=== PATIENT | female | born 1965 | race Caucasian/White ===

== ENCOUNTER 2021-01-30 18:57 | Inpatient (IN) ==
[2021-01-30] MEDS ORDERED: Ipratropium/Albuterol Neb 3 ML IH ONE (19:01)
[2021-01-30 19:27] LABS: VBG HCO3 33 mEq/L (21-27); VBG PCO2 79 mmHg (41-51); VBG PH 7.23 pH Units (7.32-7.42); VBG PO2 37 mmHg (25-50)
[2021-01-30 19:29] LABS: Basophils # 0.1 K/mcL (0.0-0.2); Basophils % 0.5 %; Eosinophils # 0.3 K/mcL (0.0-0.6); Eosinophils % 2.4 %; Hematocrit 43.5 % (35.3-44.9); Hemoglobin 14.6 g/dL (11.5-15.4); Immature Granulocytes % 0.3 % (0-4); Lymphocytes # 2.2 K/mcL (0.6-4.6); Lymphocytes % 21.1 %; Mean Corpuscular HGB Conc 33.6 g/dL (31.6-35.5); Mean Corpuscular Hemoglobin 34.2 pg (28.0-33.3); Mean Corpuscular Volume 101.9 fL (83.0-100.0); Mean Platelet Volume 9.8 fL (9.4-12.4); Monocytes # 0.7 K/mcL (0.0-1.3); Monocytes % 6.1 %; Neutrophils # 7.4 K/mcL (1.6-8.9); Platelet Count 203 K/mcL (140-400); Red Blood Count 4.27 M/mcL (3.82-4.97); Red Cell Distribution Width 12.8 % (11.5-14.5); Segmented Neutrophils % 69.6 %; White Blood Count 10.6 K/mcL (4.3-11.1)
[2021-01-30 19:51] LABS: BUN/Creatinine Ratio 14 (6-26); Blood Urea Nitrogen 12 mg/dL (6-20); Calcium 8.6 mg/dL (8.6-10.3); Carbon Dioxide 30 mEq/L (23-29); Chloride 95 mEq/L (98-107); Glucose 210 mg/dL (70-105); Magnesium 1.7 mg/dL (1.6-2.6); Osmolality,Calculated 288 (280-300); Potassium 4.5 mEq/L (3.5-5.1); Sodium 136 mEq/L (136-145); Troponin I 0.03 ng/mL (< 0.04); eGFR For African Americans > 60 (> 60); eGFR For Non-African Americans > 60 (> 60)
[2021-01-30 20:12] LABS: Adenovirus Not Detected (Not Detect); Bordetella Pertussis Not Detected (Not Detect); Chlamydophila pneumoniae Not Detected (Not Detect); Coronavirus 229E Not Detected (Not Detect); Coronavirus HKU1 Not Detected (Not Detect); Coronavirus NL63 Not Detected (Not Detect); Coronavirus OC43 Not Detected (Not Detect); Human Metapneumovirus Not Detected (Not Detect); Human Rhinovirus/Enterovirus Not Detected (Not Detect); Influenza A Subtype 2009 H1 Not Detected (Not Detect); Influenza B Not Detected (Not Detect); Mycoplasma pneumoniae Not Detected (Not Detect); Parainfluenza Virus 1 Not Detected (Not Detect); Parainfluenza Virus 2 Not Detected (Not Detect); Parainfluenza Virus 3 Not Detected (Not Detect); Parainfluenza Virus 4 Not Detected (Not Detect); Respiratory Syncytial Virus Not Detected (Not Detect); SARS-CoV-2 Not Detected (Not Detect)
[2021-01-30 20:26] LABS: ABG Base Excess 4 mEq/L (-2 to 3); ABG HCO3 31 mEq/L (21-27); ABG Oxygen Saturation 100 % (95-98); ABG PCO2 56 mmHg (35-45); ABG PH 7.35 pH Units (7.32-7.45); ABG PO2 257 mmHg (85-104); ABG TCO2 33 mEq/L (20-26); Blood Gas Modality ST
[2021-01-30] MEDS ORDERED: Isovue-370 500 ML BOTTLE IVP ONE (21:27)
[2021-01-30] MEDS ORDERED: cefTRIAXone 1,000 MG in 0.9 % Sodium Chloride Mini Bag 100 ML IVPB ONE (21:28)
[2021-01-30] MEDS ORDERED: Azithromycin 500 MG in 0.9 % Sodium Chloride 250 ML IVPB ONE (21:28)
[2021-01-30] MEDS ORDERED: Naloxone 0.4 MG/ML INJ IVP PRN (23:10)
[2021-01-30] MEDS ORDERED: Ondansetron ODT 4 MG TAB.RAPDIS SL PRN (23:10)
[2021-01-30] MEDS ORDERED: Melatonin 3 MG TABLET PO PRN (23:10)
[2021-01-30] MEDS ORDERED: Albuterol 2.5 MG/3 ML NEBULIZER IH PRN (23:11)
[2021-01-30] MEDS ORDERED: Ipratropium/Albuterol Neb 3 ML IH PRN (23:12)
[2021-01-30] MEDS ORDERED: Azithromycin 500 MG in 0.9 % Sodium Chloride 250 ML IVPB SCH (23:45)
[2021-01-30] MEDS ORDERED: Acetaminophen 325 MG TABLET PO PRN (23:47)
[2021-01-31] MEDS ORDERED: *HR* LORazepam 2 MG/ML VIAL IVP ONE (00:13)
[2021-01-31] MEDS: MethylPREDNISolone 40 MG/ML VIAL IVP SCH ×3 (00:31→12:29)
[2021-01-31 02:06] LABS: Hematocrit 42.8 % (35.3-44.9); Hemoglobin 14.5 g/dL (11.5-15.4); Mean Corpuscular HGB Conc 33.9 g/dL (31.6-35.5); Mean Corpuscular Hemoglobin 34.1 pg (28.0-33.3); Mean Corpuscular Volume 100.7 fL (83.0-100.0); Mean Platelet Volume 9.7 fL (9.4-12.4); Platelet Count 191 K/mcL (140-400); Red Blood Count 4.25 M/mcL (3.82-4.97); White Blood Count 8.6 K/mcL (4.3-11.1)
[2021-01-31 02:10] LABS: Estimated Average Glucose 111 mg/dl; Hemoglobin A1C 5.5 %
[2021-01-31 02:30] LABS: BUN/Creatinine Ratio 15 (6-26); Blood Urea Nitrogen 12 mg/dL (6-20); Calcium 8.5 mg/dL (8.6-10.3); Carbon Dioxide 27 mEq/L (23-29); Chloride 96 mEq/L (98-107); Glucose 117 mg/dL (70-105); Magnesium 1.7 mg/dL (1.6-2.6); Osmolality,Calculated 277 (280-300); Potassium 5.3 mEq/L (3.5-5.1); Sodium 133 mEq/L (136-145); eGFR For African Americans > 60 (> 60); eGFR For Non-African Americans > 60 (> 60)
[2021-01-31] MEDS: *HR* Heparin 5,000 UNIT/ML VIAL SQ SCH ×2 (04:36→18:04)
[2021-01-31] MEDS ORDERED: amLODIPine 5 MG TABLET PO SCH (09:00)
[2021-01-31] MEDS ORDERED: amLODIPine 5 MG TABLET PO ONE ×2 (12:38)
[2021-01-31] MEDS ORDERED: diazePAM 2 MG TABLET PO PRN ×2 (15:56→16:58)
[2021-01-31] MEDS: lisinopriL 20 MG TABLET PO SCH (16:12)
[2021-01-31] MEDS ORDERED: Azithromycin 500 MG in 0.9 % Sodium Chloride 250 ML IVPB SCH (18:00)
[2021-01-31] MEDS: Budesonide/Formoterol 160/4.5 1 PUFF INH IH SCH (19:53)
[2021-02-01] MEDS ORDERED: MethylPREDNISolone 40 MG/ML VIAL IVP SCH
[2021-02-01] MEDS ORDERED: *HR* Labetalol 20 MG/4 ML SYRINGE IVP ONE (05:07)
[2021-02-01] MEDS: *HR* Heparin 5,000 UNIT/ML VIAL SQ SCH (05:33)
[2021-02-01] MEDS: MethylPREDNISolone 40 MG/ML VIAL IVP SCH (06:18)
[2021-02-01] MEDS: lisinopriL 20 MG TABLET PO SCH (07:55)
[2021-02-01] MEDS: Budesonide/Formoterol 160/4.5 1 PUFF INH IH SCH (08:09)
[2021-02-01] MEDS ORDERED: amLODIPine 5 MG TABLET PO SCH (09:00)
[2021-02-01] MEDS ORDERED: cloNIDine HCL 0.1 MG TABLET PO SCH (09:45)
[2021-02-01] MEDS ORDERED: Propranolol LA (24 HR) 60 MG CAP.SA.24H PO SCH (10:45)
[2021-02-01 11:25] VITALS: BP 134/89; PULSE 83; TEMP 97.9
[2021-02-01 11:31] VITALS: O2SAT 93
[2021-02-01] MEDS ORDERED: diazePAM 2 MG TABLET PO SCH (21:00)
[2021-02-02] MEDS ORDERED: predniSONE 20 MG TABLET PO SCH (09:00)
== END 2021-02-01 14:00 | disposition home or self-care (01) | DRG 140 ==
LOC: 2NENU 18:57 → EMEROOARM 18:57 → SUATTDRO 22:26 → OBSVTOIN 22:26 → 2NENU 23:45
PROVIDERS: ADMIT Student in an Organized Health Care Education/Training Program; ATTEND Internal Medicine